=== PATIENT | male | born 1970 | race Caucasian/White ===

== ENCOUNTER 2023-02-13 04:38 | Day surgery (SDC) | payer OTHER ==
[2023-02-10 11:32] VITALS: BMI 34.2
[2023-02-13 12:18] VITALS: TEMP 97.3
[2023-02-13 12:54] VITALS: RESP 18
[2023-02-13 13:06] VITALS: BP 109/58; PULSE 62
== END 2023-02-13 12:57 | disposition home or self-care (01) ==
LOC: JASU-ENDO 04:38
PROVIDERS: ATTEND Internal Medicine Gastroenterology
PROC: 0DJD8ZZ Inspection of Lower Intestinal Tract, Via Natural or Artificial Opening Endoscopic (ICD-10-PCS; principal; 2023-02-13 10:30)
DX: Z12.11 Encounter for screening for malignant neoplasm of colon (principal); Z80.0 Family history of malignant neoplasm of digestive organs; K57.30 Diverticulosis of large intestine without perforation or abscess without bleeding